=== PATIENT | female | born 2000 | race Caucasian/White ===

== ENCOUNTER 2024-02-02 09:21 | Emergency (ER) | payer OTHER ==
[~2024-02-02] VITALS: Ht 165.1 cm; Wt 72.0 kg
[~2024-02-02 09:21] MED LIST: METRONIDAZOLE500 MG PO; ONDANSETRON4 MG PO; VIBRAMYCIN100 M2 PO
[2024-02-02 09:28] VITALS: BP 113/73
[2024-02-02 09:30] VITALS: BP 112/79
[2024-02-02 09:45] VITALS: BP 101/71
[2024-02-02] MEDS ORDERED: TRAMADOL HYDROC50 M1 PO (09:56)
[2024-02-02] MEDS ORDERED: FLOXIN OTIC0.3 % AU (09:56)
[2024-02-02 10:00] VITALS: BP 109/68; BP 112/79
== END 2024-02-02 10:00 | disposition home or self-care (01) | DRG 156 ==
LOC: ED 09:21
DX: H60.93 Unspecified otitis externa, bilateral (principal)